=== PATIENT | male | born 1960 | race Caucasian/White ===

== ENCOUNTER 2016-07-08 02:33 | Inpatient (IN) | payer BC ==
[~2016-07-08] VITALS: Ht 182.9 cm; Wt 134.8 kg
--- NOTE | ~2016-07-08 | ECHO ---
Transthoracic Echocardiography Report (TTE) Demographics Patient Name ZOE ELLSWORTH Date of Study 07/08/2016 Patient Number [id number] Visit Number [id number] Date of 1960 Room Number G6306 Gender Male Number Age 56 year(s) Referring Tra Lantigua MD Music Manager Andrzej Calderon RVT Physician Ana Matute MD Physician Interpreting Jamal Monroe Caustic Purification Operator Physician A Supervising Ordering Ana Cruz MD/MLP Physician Nurse Stress Electric Knife Operator Conclusions Contractility Score Summary Normal Left Ventricular contractility was noted. Summary Technically difficult exam. The estimated left ventricular ejection fraction is 55%. Moderate to severe concentric left ventricular hypertrophy. The left atrium is severely dilated by LA volume index measurement. The right atrium is mildly dilated. The patient is known to have a St. Avnce mechanical valve. Velocities and gradients upper limits of normal. Mean gradient 8 mmHg. The aortic valve is mildly sclerotic. There is trivial aortic regurgitation by color Doppler. Mild tricuspid regurgitation by color Doppler. There is mild pulmonary hypertension. The pulmonary pressure (RVSP) is 38 mmHg. Trivial pulmonic valve regurgitation by color Doppler. The ascending aorta appears mildly dilated. The maximum diameter measures 3.3 cm. Procedure Type of Study TTE procedure:2D Echocardiogram. Procedure Date Date: 07/08/2016 Start: 09:27 AM Study Location: Inpatient Portable Technical Quality: Adequate visualization Indications:Dyspnea/SOB. Patient Status: Routine HR: 82 bpm BP: 136/76 mmHg M-Mode/2D Measurements LV Diastolic Dimension: 4.59 cm LV Systolic Dimension: 2.56 cm LV Septum Diastolic: 1.39 cm LV PW Diastolic: 1.94 cm AO Root Dimension: 3.6 cm Cardiac Output: 7.7 l/min AV Cusp Separation: 2.5 cm RV Diastolic Dimension: 3.04 cm LA volume: 216 ml LVOT: 2.7 cm RV Base: 3.28 cm LVOT VTI: 16.4 cm RV Mid: 2.65 cm LV Stroke volume: 93.85 ml Doppler Measurements AV Peak Velocity: 1.13 m/s MV Peak E-Wave: 1.29 m/s AV Peak Gradient: 5.11 mmHg MV Peak A-Wave: 1.68 m/s AV Mean Gradient: 3 mmHg MV E/A Ratio: 0.77 LVOT Peak Velocity: 0.91 m/s MV P1/2t: 89 msec TR Gradient:28.52 mmHg PV Peak Velocity: 1.25 m/s Estimated RAP:10 mmHg PV Peak Gradient: 6.25 mmHg Estimated RVSP: 39 mmHg Estimated PASP: 38.52 mmHg E' Lateral Velocity: 0.09 m/s A' Lateral Velocity: 0.16 m/s Findings Left Ventricle Moderate to severe concentric left ventricular hypertrophy. Right Ventricle Normal right ventricle structure and function. Left Atrium The left atrium is severely dilated by LA volume index measurement. Right Atrium The right atrium is mildly dilated. IVC measures 1.91 cm with inspiratory collapse. Mitral Valve The patient is known to have a St. Vance mechanical valve. Velocities and gradients upper limits of normal. Mean gradient 8 mmHg. Aortic Valve The aortic valve is mildly sclerotic. There is trivial aortic regurgitation by color Doppler. Tricuspid Valve Mild tricuspid regurgitation by color Doppler. There is mild pulmonary hypertension. The pulmonary pressure (RVSP) is 38 mmHg. Pulmonic Valve Trivial pulmonic valve regurgitation by color Doppler. Pericardial Effusion No evidence of pericardial effusion. Miscellaneous The ascending aorta appears mildly dilated. The maximum diameter measures 3.3 cm. Pleural Effusion No evidence of pleural effusion. Contractility Score LV regional wall motion:(0-Non visualized 1-Normal 2-Hypokinesis 3-Akinesis 4-Dyskinesis 5-Aneurysm) Signature dtt: Carri Berryd: 07/08/16 0927 Physician Self Edit
--- NOTE | ~2016-07-08 | CON ---
[facility]GE[facility] 56 Y [address] ROOM: [place] [address] LOCATION: GPCU ADMIT DATE: 07/08/2016 Consultation DISCHARGE DATE: 07/10/2016 FAMILY PHYSICIAN: Derek Luis MD ATTENDING PHYSICIAN: Noe Dailey DATE OF CONSULTATION: 07/08/2016 REFERRING PHYSICIAN: Beltran Maher MD INDICATION: Cough and shortness of breath. HISTORY OF PRESENT ILLNESS: This is a 56-year-old male, transferred from [place] for cough and shortness of breath. He reports an onset of cough 4 months ago without any precipitating factors. In has become progressed to becoming daily and also waking him at night. It is very harsh and dry and it causes him to be lightheaded and dizzy at times. He denies any history of asthma or allergies. He has no history of tobacco use. He denies any PND, orthopnea, or edema. No chest pain. His shortness of breath occurs mainly with cough. He has been given several rounds of antibiotics and prednisone and notes some improvement with the prednisone. He was also given an inhaled corticosteroid inhaler, but developed thrush after the first day or so and therefore stopped it. He did not note any improvement with ProAir either. He also notes excessive daytime sleepiness, snoring, and apneic spells. Overall, he feels a little better this morning after being started on IV steroids. He also notes improvement with DuoNeb. He was initially started on BiPAP and has been weaned down to 4 L nasal cannula. He denies any nasal drainage or congestion. He has no heartburn symptoms. He denies any fevers, chills, nausea, or vomiting. Initial ABG showed pH of 7.37, pCO2 45, PO2 59, and bicarb 26. CT of the chest was reportedly normal. PAST MEDICAL HISTORY: Includes mitral valve replacement, on termite renewal inspector anticoagulation; paroxysmal atrial fibrillation; and hyperlipidemia. ALLERGIES: SEE APR. MEDICATIONS: See MAR. SOCIAL HISTORY: The patient denies any tobacco or alcohol use. He is a rancher. PATIENT'S NAME: [facility] AGE: 56 Y [address] ROOM: [place] [address] LOCATION: GPCU ADMIT DATE: 07/08/2016 Consultation DISCHARGE DATE: 07/10/2016 FAMILY PHYSICIAN: Derek Luis MD ATTENDING PHYSICIAN: Noe Dailey FAMILY HISTORY: His mother had hypertension, his father from old age. He denies any premature coronary artery disease in the family. REVIEW OF SYSTEMS: All review of systems were reviewed and are negative except for what is noted in the HPI. PHYSICAL EXAMINATION: VITAL SIGNS: Blood pressure 136/76, heart rate 79, respirations 16, temperature 98.0, and 4 L per nasal cannula at 92%. GENERAL: This is an obese 56-year-old male who is alert and oriented x3 and appears in no acute distress at the time of exam. HEENT: Head: Normocephalic and atraumatic. Eyes, clear. NECK: Supple. No adenopathy. No carotid bruits or JVD. LUNGS: With diffuse wheezing. No rales. HEART: Regular rate and rhythm without murmur, gallop, or rub. ABDOMEN: Soft, nontender, and nondistended. Bowel sounds x4. EXTREMITIES: No cyanosis or clubbing. Trace edema. DIAGNOSTIC DATA: ABG showed pH of 7.37, pCO2 45, PO2 59, bicarb 26. Lactate was 2.5. Sodium 142, potassium 4.5, BUN 11, and creatinine 1.3. WBC 8.2, hemoglobin 13.3, hematocrit 40.4, and platelets 159. Chest x-ray demonstrated only cardiomegaly. ASSESSMENT: 1. Cough, most likely reactive airway disease and possibly asthma. 2. Reactive airway disease/asthma exacerbation. Started on IV steroids with DuoNeb and albuterol p.r.n. and has already demonstrated some improvement in the last several hours. Recommend continuing with IV steroids and adding an inhaled corticosteroid/LABA. Recommend allergic workup as an outpatient. Also recommend adding Tessalon Perles or cough syrup if needed. We will plan to check PFTs as an outpatient. 3. Acute hypoxic respiratory failure secondary to reactive airway disease/asthma exacerbation. Wean O2 as able. 4. Lower extremity edema. Echocardiogram pending. 5. History of mitral valve replacement. Recommend following up on cultures and stopping the antibiotics if things are negative. 6. Excessive daytime sleepiness. Recommend outpatient sleep study. Thank you for the consult and opportunity to participate in the patient's care. PATIENT'S NAME: ZOE ELLSWORTH [facility] AGE: 56 Y [address] ROOM: [place] [address] [facility] ADMIT DATE: 07/08/2016 Consultation DISCHARGE DATE: 07/10/2016 FAMILY PHYSICIAN: Derek Luis MD ATTENDING PHYSICIAN: Noe Dailey TI HENDRIX APRN FOR SEAN HAGEN DO [facility]/modl /[id number] d: 07/29/162104 t: 08/03/162122, CONSULTATION REPORT
--- NOTE | ~2016-07-08 | HP ---
PATIENT'S NAME: ZOE ELLSWORTH [facility] AGE: 56 Y [address] ROOM: [address] [place] [id number] LOCATION: GPCU ADMIT DATE: 07/08/2016 History & Physical DISCHARGE DATE: FAMILY PHYSICIAN: PHYSICIAN, UNKNOWN ATTENDING PHYSICIAN: LONNY PIERRE DATE OF SERVICE: CHIEF COMPLAINT: Dry cough and dyspnea when he has dry cough, roughly started 4 months ago. HISTORY OF PRESENT ILLNESS: This is a 56-year-old male who says that for the last 4 months, he has been having this dry cough and dyspnea only when he has dry cough. He has seen his primary care physician 4 to 5 times. He was given multiple antibiotics and also inhalers and steroids, and he states that only the steroids helping the most, but eventually the dry cough and the dyspnea when he has dry cough will always come back. The patient was scheduled to see a director of compliance today, but before he could even see Pulmonology, his dry cough and shortness of breath when he has dry cough, had become worse, and he went to the emergency room today at [place] for evaluation. Over there, the patient had a CT pulmonary angiogram performed and based on the report that was sent over here, it was read as no evidence of pulmonary embolism and per verbal report given to me by the transferring physician over there, no evidence of effusion or infiltrate. I do not physically see the written report in the chart; I will request that to be sent over here. The patient was put on BiPAP for the presumed COPD exacerbation; however, upon further questioning, the patient was never a smoker and never had exposure to secondhand smokers either. The patient was also never told that he had a COPD diagnosis either. The patient was feeling better on BiPAP, and the patient was transferred here for further care. Before the transfer, the patient also got 1 dose of DuoNeb nebulization and 1 dose of IV Solu-Medrol 125 mg and also 1 dose of IV ceftriaxone 1 g and IV azithromycin 500 mg x1. The patient also has a history remarkable for status post mechanical aortic valve replacement 20 years ago in [place], on Coumadin long-term and INR was found to be 3.9 from the outside facility, and the patient denies any history of bleeding. REVIEW OF SYSTEMS: As mentioned in the history of present illness. All other systems were reviewed and they were negative except for those mentioned in the history of present illness. PAST MEDICAL HISTORY: PATIENT'S NAME: ZOE ELLSWORTH [facility] AGE: 56 Y [address] ROOM: [address] [place], [place] [address] [facility] ADMIT DATE: 07/08/2016 History & Physical DISCHARGE DATE: FAMILY PHYSICIAN: PHYSICIAN, UNKNOWN ATTENDING PHYSICIAN: LONNY PIERRE According to the patient: 1. Mitral valve problem, details not clear, status post mitral valve replacement 20 years ago in [place] and on long-term anticoagulation with Coumadin. 2. History of paroxysmal atrial fibrillation, on Coumadin and also on antiarrhythmic, flecainide. Flecainide was started about a year and half ago. The patient was never on amiodarone. 3. Hyperlipidemia. 4. Probable obstructive sleep apnea given that the patient does snore at night and also has episodes of apnea during sleep per the patient's . Never had a sleep study done before. ALLERGIES: NO KNOWN DRUG ALLERGIES ACCORDING TO THE PATIENT. HOME MEDICATIONS: 1. Albuterol inhalation every 4 hours p.r.n. for shortness of breath or wheezing. 2. Lipitor 40 mg p.o. daily at bedtime. 3. Codeine 30 mg p.o. every 4 hours p.r.n. for pain. 4. Flecainide 100 mg p.o. b.i.d. 5. Coumadin 4 mg p.o. daily alternating with Coumadin 5 mg p.o. daily for INR goal of 2.5 to 3.5 for mechanical mitral valve. SOCIAL HISTORY: The patient was never a cigarette smoker. Also did not have any secondhand exposure to smoke either. The patient is a social alcohol drinker, but he denies any alcohol abuse. 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 PAST SURGICAL HISTORY: Status post mechanical mitral valve replacement 20 years ago in [place], on long- term Coumadin. FAMILY HISTORY: Mother has hypertension and father from old age. He denies any premature coronary artery disease in the family. PHYSICAL EXAMINATION: VITAL SIGNS: At the time of my dictation, temperature 98, heart rate is at 71, respiration is at 14, blood pressure is at 130/80, and saturation at 92% on 3 L nasal cannula. GENERAL APPEARANCE: Alert and oriented x3. In no acute distress. HEENT: Pupils equally round and reactive to light. Extraocular muscles intact. Anicteric sclerae. Nasal turbinates are normal bilaterally. Moist PATIENT'S NAME: ZOE ELLSWORTH [facility] AGE: 56 Y [address] ROOM: [place] [address] [facility] AD[facility] DATE: 07/08/2016 History & Physical DISCHARGE DATE: FAMILY PHYSICIAN: PHYSICIAN, UNKNOWN ATTENDING PHYSICIAN: LONNY PIERRE oral mucosa. NECK: No JVD. CARDIOVASCULAR: Mechanical aortic valve sound. No murmurs, no rubs. Normal S1, S2. RESPIRATORY: Diffuse wheezing on examination. No rales, no rhonchi, no crackles. ABDOMEN: Obese, soft, nontender, nondistended, normal bowel sounds, no hepatosplenomegaly. Bowel sounds are present. EXTREMITIES: Pitting edema +1 in bilateral lower extremities. The patient said this is chronic for long time. SKIN: No ulcer, no rash, no cyanosis. MUSCULOSKELETAL: No joint pain, no muscle pain. NEUROLOGIC: Grossly nonfocal. LABORATORY DATA: ABG: PH 7.37, pCO2 of 45, pO2 of 59, bicarbonate 26, and saturation 89%, and this was performed on 2 L nasal cannula, not on BiPAP. Lactic acid 2.5. Troponin less than 0.04. ProBNP 214. CPK 184. White blood cells 8.2, hemoglobin 13.3, hematocrit 40.4, MCV 91.2, platelets 159. Glucose 155, BUN 11, creatinine 1.3, sodium 142, potassium 4.5, chloride 110, CO2 of 22, calcium 8.6. Liver function testing: Total protein 6.9, albumin 3.3, AST 22, ALT 23, alkaline phosphatase 78, total bilirubin 0.7. Magnesium 2.1. Anion gap 14.5. GFR 57. INR 3.69, PTT 51, CK-MB 0.8. Procalcitonin less than 0.05. IMAGING STUDIES: EKG on admission here on July 08, 2016, at 4:05 a.m. shows sinus rhythm with a first-degree AV block, HI of 245 milliseconds, QRS 144 milliseconds, QTc 467 milliseconds. Evidence of a complete right bundle-branch block. Q-wave on the inferior leads. T inversion in the inferior leads. No prior EKG for comparison. CT pulmonary angiogram performed at outside facility: Per the report sent over here, no evidence of PE. Per verbal report given to me over the phone, no evidence of effusion or infiltrate. I will have to request the written report to be sent over here. ASSESSMENT AND PLAN: 1. Regarding his dry cough and dyspnea when he has dry cough: I suspect he might have asthma that was never diagnosed, given that he has a wheezing on examination and dry cough and going on for 4 months, and he responds to steroids in the past. I will treat him as an acute asthma exacerbation with IV Solu-Medrol 60 mg b.i.d. given that he got a 1 full dose of 125 mg from an outside facility already. I will cover him with PATIENT'S NAME: ZOE ELLSWORTH [facility] AGE: 56 Y [address] ROOM: [place] [address] [facility] ADMIT DATE: 07/08/2016 History & Physical DISCHARGE DATE: FAMILY PHYSICIAN: PHYSICIAN, UNKNOWN ATTENDING PHYSICIAN: LONNY PIERRE IV, which is a good coverage for community-acquired atypical organism, and I will request the written report of the CT pulmonary angiogram to be sent over here from [place]. I will also give him nebulization with Xopenex and Atrovent plus Xopenex p.r.n. Oxygen nasal cannula to keep the saturation more than 94% and also use incentive spirometry 10 times per hour while awake. I will get a chest x-ray in the morning again. Further plan depends on clinical course. I will also get a Pulmonology consult for further evaluation to determine the cause of his dry cough and also his shortness of breath with dry cough for the last 4 months. I will do a septic workup including blood culture 2 sets, get a UA and also urine culture as well. Further plan depends on clinical course. 2. Regarding his supratherapeutic INR in the setting of using Coumadin for mechanical mitral valve: Hold the Coumadin tonight and dosing per pharmacy to keep the INR goal at 2.5 to 3.5 in the setting of a mechanical mitral valve replacement. Give him Protonix 40 mg p.o. daily given that he is on steroids and also on Coumadin. 3. Regarding his history of paroxysmal atrial fibrillation: EKG shows sinus rhythm currently. Continue telemetry monitoring. Continue the home medication, flecainide and also Coumadin dosing per pharmacy. I will get an echo in the morning given that the patient does have a trace pitting edema in bilateral lower extremities, echo will see the mechanical valve and also looking at any other valvulopathy and ejection fraction and any wall motion abnormality. Cardiology could be consulted if necessary. The patient denies any chest pain. Further plan depends on clinical course. 4. Regarding his probable obstructive sleep apnea: The patient does snore and also does have periods of apnea during sleep at night per the patient's . I will keep him on oxygen nasal cannula. The patient may require a sleep study. I will defer the evaluation to the director of compliance. For now, I will continue oxygen nasal cannula. Currently, the patient does not require a BiPAP, and the patient does not have evidence of CO2 retention given that his bicarbonate is 22; therefore, he is not a CO2 retainer. The patient was also never a smoker, I doubt he has a chronic obstructive pulmonary disease diagnosis. 5. Regarding his hyperlipidemia: I will check the lipid panel and continue the home medication that he is currently taking with statin. I will also check a hemoglobin A1c in the morning as well. 6. Regarding his deep vein thrombosis prophylaxis: His INR is already supratherapeutic, and he is on Coumadin already. 7. Code status: He is a full code. Time spent in care on the day of admission 45 minutes including chart review, interviewing the patient, examining the patient, addressing all the questions and concerns the patient had; I also went over the plan of care in detail with PATIENT'S NAME: ZOE ELLSWORTH [facility] AGE: 56 Y [address] ROOM: [place] [address] [facility] ADMIT DATE: 07/08/2016 History & Physical DISCHARGE DATE: FAMILY PHYSICIAN: PHYSICIAN, UNKNOWN ATTENDING PHYSICIAN: LONNY PIERRE the patient, the patient's , and the nurses. I also went over the plan of care and answered all the questions that the patient and the patient's had at the bedside. Further plan will depend on the patient's clinical course. MD BHAKTI LOPEZ/manjit /[id number] D: [id number] T: [id number] HISTORY & PHYSICAL
--- NOTE | ~2016-07-08 | DS ---
PATIENT'S NAME: ZOE ELLSWORTH [facility] AGE: 56 Y [address] ROOM: [address] [address] LOCATION: GPCU ADMIT DATE: 07/08/2016 Discharge Summary DISCHARGE DATE: 07/10/2016 FAMILY PHYSICIAN: Derek Luis MD ATTENDING PHYSICIAN: Mark Estevez FINAL DIAGNOSES: 1. Reactive airway disease. 2. Bronchitis, resolving. 3. History of mitral valve replacement. 4. Long-term anticoagulation with supratherapeutic INR, currently Coumadin is on hold. 5. Nocturnal hypoxia. 6. High risk for obstructive sleep apnea. CONSULTATIONS: Pulmonology, Isiah Skaggs DO. PROCEDURES: None. REASON FOR ADMISSION: This is a 56-year-old male, who presented with dry cough and dyspnea. The patient had been having chronic dry cough for about four months, and had been seen by his primary care physician with repeat antibiotic treatment. The patient presented with shortness of breath from [facility]. He was transferred for higher level of care. Please see Dr. Dailey's admission H and P for further details. DIAGNOSTIC STUDIES: A transthoracic echocardiogram was done on admission and showed normal left ventricular contractility with ejection fraction of 55%, and [id number] concentric left ventricular hypertrophy was noted with the right atrium mildly dilated. The patient has a [place] mechanical valve. Aortic valve was mildly sclerotic. Mild tricuspid regurgitation was noted. Mild pulmonary hypertension with RVSP of 38 mmHg was noted. Ascending aorta appeared dilated. ABG was done on admission and showed a pH of 7.37, pCO2 of 45, pO2 of 59, bicarbonate of 26.0, lactate of 2.5, CPK of 184, troponin I was less than 0.04, and proBNP of 214. Serial CBCs were done and white count on admission was 8.2. The patient was placed on steroids. White count at the time of discharge was 13.5. The patient had elevated white count, likely secondary to steroid use. Hemoglobin, hematocrit, and platelet levels were within normal range. Serial CMP showed essentially normal electrolytes, kidney function tests, and liver function tests. Hemoglobin A1c was 6.2. Lipid panel was done, which showed a total cholesterol of 175, triglycerides of 146, HDL of 48, and LDL of 98. The PATIENT'S NAME: ELLSWORTH, ZOE [facility] AGE: 56 Y [address] ROOM: [id number] [place], [place] [address] LOCATION: GPCU ADMIT DATE: 07/08/2016 Discharge Summary DISCHARGE DATE: 07/10/2016 FAMILY PHYSICIAN: Derek Luis MD ATTENDING PHYSICIAN: Mark Estevez patient is on Coumadin. His INR was supratherapeutic at 3.69 on admission. Coumadin was held. The next day, INR was 3.47. Coumadin was re-started and INR was supratherapeutic on the day of discharge at 4.09. Coumadin was held on the day of discharge. UA was negative for bacteria. Procalcitonin level was less than 0.05. Bordetella pertussis test was done, and is pending at this point of time. Chest x-ray was done on admission for dyspnea and showed cardiac enlargement and past cardiac surgery. No vascular congestion. Acute parenchymal infiltrate was noted. Urine culture was negative. Blood culture remained negative. The patient had a CT chest, PE protocol done at the referral hospital prior to transfer to [facility]. It was negative for PE. EKG showed sinus rhythm with first-degree AV block and rate of 74 beats per minute, possible right bundle-branch block, and non-specific changes. The patient's CT chest also showed hepatic steatosis with hepatosplenomegaly and positive for cholelithiasis. HOSPITAL COURSE: This is a 56-year-old male, who presented with chronic onset of dry cough and shortness of breath. The patient had been having chronic dry cough and shortness of breath for the past four months. He has been followed up with his primary care physician, and has had repeated course of steroids, which he temporarily gets better with, and antibiotics. The patient presented to [facility] with increased shortness of breath and a dry cough. He was evaluated and a CT chest, PE protocol was done that was negative for pulmonary embolism. It did show hepatic steatosis with hepatosplenomegaly and positive for cholelithiasis. The patient was then given steroids and antibiotics, and placed on BiPAP and transferred to [facility] for higher level of care. After admission to [facility], a 2D echo was done, and findings are as above. Pulmonology, Dr. Bibler was consulted. This patient was thought to have reactive airway disease. He was placed on Levaquin. He was also given breathing treatments aggressively. He received steroids aggressively. The patient's white count was normal on admission. Blood cultures were negative. The patient did not have a fever. His UA was normal. Sepsis workup remained negative. The patient did have elevation in his white count by the time of discharge. This was thought to be likely secondary to steroid use. The patient was able to be weaned off BiPAP. He was not requiring any oxygen during the day. He was ambulating without the help of any oxygen. His dyspnea had improved markedly. His dry cough improved markedly with Tessalon Perles. The patient then continued to do well. The day prior to his discharge, a trend oximetry study was done, and the patient qualified for home O2 at bedtime. The patient will need a sleep study as outpatient with his primary care physician. PATIENT'S NAME: ZOE ELLSWORTH [facility] AGE: 56 Y [address] ROOM: [place] [address] [facility] ADMIT DATE: 07/08/2016 Discharge Summary DISCHARGE DATE: 07/10/2016 FAMILY PHYSICIAN: Derek Luis MD ATTENDING PHYSICIAN: Mark Estevez The patient has a history of mitral valve replacement, and is on long-term anticoagulation. At the time of admission, his INR was supratherapeutic and Coumadin was held. When his INR was within normal range, Coumadin was re- started for a day. However, on the day of discharge, the patient's INR was supratherapeutic at 4.29, and again Coumadin was held on the day of discharge. The patient was also asked to hold Coumadin up until he got a PT/INR with Urgent Care or his primary care physician on 07/11/2016. Primary care physician is to re-start Coumadin based on PT/INR levels. The patient was advised about the same. The patient continued to do well, and was anxious to get home. CONDITION ON DISCHARGE: He was then discharged to home in stable condition with the appropriate followup. DISCHARGE INSTRUCTIONS: The patient was discharged on a cardiac diet with activity as tolerated. Follow up with Dr. Maher, Pulmonology, in 4 to 6 weeks' time. Follow up with PCP, Dr. Derek Luis on 07/11/2016 with the PT/INR. The patient is to follow up with Urgent Care or ER for PT/INR on 07/11/2016 if his primary care physician is not available. The patient verbalized understanding. PCP is to check CBC and BMP at followup. PCP is to manage Coumadin based on PT/INR levels. Goal PT/INR is 2.5 to 3.5. Hold Coumadin on 07/10/2016 and on 07/11/2016. Resume Coumadin on 07/12/2016 if okay with PCP. DISCHARGE MEDICATIONS: 1. Lipitor 40 mg p.o. at bedtime. 2. Flecainide 100 mg p.o. b.i.d. 3. Tessalon Perles 100 mg p.o. t.i.d. p.r.n. cough. 4. Levaquin 750 mg p.o. daily for seven more days. 5. Protonix 40 mg p.o. daily. 6. ProAir HFA inhaler two puffs inhalation every 2 hours as needed p.r.n. shortness of breath or wheezing. 7. Codeine sulfate 30 mg p.o. q.4 hours p.r.n. pain. 8. Coumadin 9 mg p.o. daily per home regimen. Hold on 07/10/2016 and 07/11/2016. He may resume if okay with PCP after PT/INR level on 07/11/2016. PCP is to manage Coumadin. Goal INR is 2.5 to 3.5. 9. Albuterol nebulizer one nebulization treatment q.6 hours. 10. Symbicort 160/4.5 mcg two puffs inhalation b.i.d. with spacer. 11. Prednisone 40 mg p.o. daily for three days; stop on 07/11/2016. 12. Prednisone 30 mg p.o. daily for two days; stop on 07/13/2016. 13. Prednisone 20 mg p.o. daily for two days; stop on 07/15/2016. 14. Prednisone 10 mg p.o. daily for two days; stop on 07/17/2016. 15. Prednisone 5 mg p.o. daily for two days, stop on 07/19/2016. This patient was managed by Hospitalist and Pulmonology teams during this PATIENT'S NAME: ZOE ELLSWORTH [facility] AGE: 56 Y [address] ROOM: [place] [address] LOCATION: GPCU ADMIT DATE: 07/08/2016 Discharge Summary DISCHARGE DATE: 07/10/2016 FAMILY PHYSICIAN: Derek Luis MD ATTENDING PHYSICIAN: Mark Estevez admission. MARK ESTEVEZ MD MT/modl /[id number] CC: Derek Luis MD d: 07/11/16 0448 t: 07/13/16 2154, DISCHARGE SUMMARY
--- NOTE | ~2016-07-08 | PUL ---
PATIENT'S NAME: ZOE ELLSWORTH [facility] AGE: 56 Y [address] ROOM: [place] [address] LOCATION: GPCU ADMIT DATE: 07/08/2016 Pulmonary DISCHARGE DATE: 07/10/2016 FAMILY PHYSICIAN: Derek Luis MD ATTENDING PHYSICIAN: Noe Dailey NAME OF PROCEDURE: Overnight Trend Oximetry DATE OF PROCEDURE: July 09 to July 10, 2016 REASON FOR EXAM: Nocturnal hypoxemia RESULTS: Patient overnight trend oximetry with saturations ranging from 79- 95%. Saturations were below 88% for greater than 5 minutes. Heart rate ranged from 64 to 130 beats per minute. MILAGRO ONEAL MD /[id number] dtt: 07/28/16 0827 , Milagro Oneal dtd: 07/14/16 1502
[2016-07-08] MEDS ORDERED: CODEINE30 MG PO (03:03)
[2016-07-08] MEDS ORDERED: LIPITOR40 MG PO (03:04)
[2016-07-08] MEDS ORDERED: TAMBOCOR100 MG PO (03:04)
[2016-07-08] MEDS ORDERED: COUMADIN 4MG **4 MG PO (03:05)
[2016-07-08] MEDS ORDERED: PROAIR HFA8.5 GM INH (03:06)
[2016-07-08] MEDS ORDERED: COUMADIN ** IA5 MG PO (03:06)
--- NOTE | 2016-07-08 03:10 | NUR ---
Patient admitted at 0225 from [place] for COPD exacerbation. No known allergies. Hx of mechanical heart valve '98, left knee scope x2, right shoulder repair, a.fib [id number] last year, has had chest pain before, COPD and reports chronic nonproductive cough. Reports he thought he had a blood clot when he had his valve done-on coumadin. States he chews a can of tobacco about every 2-3days. Pneumatics on. Not eligible for pneumo vaccine. at bedside.
--- NOTE | 2016-07-08 03:31 | NUR ---
Significant Event: PATIENT ARRIVES FROM [facility] WITH COPD EXACERBATION. PATIENT IS ALERT AND ORIENTED. BIPAP IS RESUMED AT 40% FIO2 12/6. SPOUSE IN ROOM WITH PATIENT. PATIENT TAKES COUMADIN FOR MECHANICAL VALVE. REPORTS HE HAD AN EPISODE OF A.FIB WHICH LASTED 4 MONTHS WHICH WAS NOT RECENT. 18G TO RIGHT WRIST. Follow up:
[2016-07-08 04:13] LABS: LACTATE 2.5 mEq/L (0.50-1.60); PCO2 45 mmHg (35-45); PO2 59 mmHg (80-90)
[2016-07-08 04:25] LABS: BASOPHIL % 0.1 %; EOSINOPHIL % 0.5 %; HEMATOCRIT 40.4 % (37.0-53.0); HEMOGLOBIN 13.3 g/dL (12.0-17.0); IMMATURE GRANULOCYTE % 0.5 %; LYMPHOCYTE % 12.1 %; MCHC 32.9 gm/dL (32.0-36.5); MCV 91.2 fl (83.0-98.0); MONOCYTE # 0.1 K/uL (0.0-1.0); MPV 10.3 fl (9.4-12.4); NEUTROPHIL % 85.8 %; NRBC % 0 /100WBC (0-0.00); PLATELET COUNT 159 K/uL (150-450); RBC 4.43 M/uL (4.00-6.00); RDW-CV 13.5 % (11.9-14.6); WBC 8.2 K/uL (4.0-11.0)
[2016-07-08 04:34] LABS: INR - (THERAPEUTIC) 3.69 (0.92-1.07); PROTIME 39.3 SECONDS (9.8-11.4); PTT 51 SECONDS (25-32)
[2016-07-08 04:49] LABS: ALBUMIN 3.3 gm/dL (3.5-5.0); ALK PHOS 78 IU/L (33-138); ALT 23 IU/L (12-78); ANION GAP 14.5 (10.0-19.0); AST 22 IU/L (10-40); BLOOD UREA NITROGEN 11 mg/dL (6-24); CALCIUM 8.6 mg/dL (8.5-10.5); CHLORIDE 110 mMol/L (96-110); CO2 22 mMol/L (22-32); CPK 184 IU/L (35-332); CREATININE 1.3 mg/dL (0.6-1.3); ESTIMATED GFR (MDRD EQUATION) 57; MAGNESIUM 2.1 mg/dL (1.8-2.6); POTASSIUM 4.5 mMol/L (3.7-5.1); SODIUM 142 mMol/L (135-145); TOTAL BILIRUBIN 0.7 mg/dL (0.0-1.5); TOTAL PROTEIN 6.9 g/dL (6.0-8.4)
[2016-07-08 10:40] LABS: BILIRUBIN URINE NEGATIVE (NEGATIVE); BLOOD URINE 10 /UL (NEGATIVE); COLOR URINE YELLOW (YELLOW); GLUCOSE URINE 100 mg/dL (NEGATIVE); KETONE URINE NEGATIVE (NEGATIVE); LEUKOCYTES URINE NEGATIVE /UL (NEGATIVE); NITRITE URINE NEGATIVE (NEGATIVE); PROTEIN URINE NEGATIVE (NEGATIVE); TURBIDITY URINE CLEAR (CLEAR); UROBILINOGEN URINE NORMAL (NORMAL)
[2016-07-08 10:45] LABS: BACTERIA URINE NEGATIVE (NEGATIVE); EPITHELIAL URINE NEGATIVE #/HPF (NEGATIVE); RBC URINE RARE #/HPF (NEGATIVE); WBC URINE RARE #/HPF (NEGATIVE)
--- NOTE | 2016-07-08 15:14 | NUR ---
Introduced self and role of care management to patient and a daughter. Patient lives near [place] with his . Patient is not on O2 at home. Patient plans home with when ready for discharge. Does not anticipate discharge needs at this time. Will follow.
--- NOTE | 2016-07-08 16:20 | NUR ---
Significant Event: echo done today. UA sent. 3.5liters. Pt up self to bathroom ok. Cough attacks at times, RT gave tx twice which helped. Tessalon perles given. Coumadin given. Solumedrol to q8h. Pt has many family here with him today. No c/o pain. Follow up:
--- NOTE | 2016-07-09 04:51 | NUR ---
Significant Event: A/O x3. Afebrile. Denies pain. VSS on 4L. SBP 130-160. HR 80-90s. LS sl coarse/clear/dim. non productive cough. Up ad nieves. IV rt wrist patent. Cooperative with cares. Follow up: Continue to monitor per plan of care.
[2016-07-09 07:07] LABS: BASOPHIL % 0.1 %; HEMATOCRIT 39.9 % (37.0-53.0); HEMOGLOBIN 13.4 g/dL (12.0-17.0); IMMATURE GRANULOCYTE # 0.1 K/uL (0.0-0.3); LYMPHOCYTE % 6.8 %; MCH 30.6 pg (27.0-34.0); MCHC 33.6 gm/dL (32.0-36.5); MCV 91.1 fl (83.0-98.0); MONOCYTE # 0.4 K/uL (0.0-1.0); MONOCYTE % 2.9 %; MPV 10.2 fl (9.4-12.4); NEUTROPHIL # (ANC) 12.4 K/uL (1.4-9.0); NEUTROPHIL % 89.2 %; NRBC % 0 /100WBC (0-0.00); PLATELET COUNT 165 K/uL (150-450); RBC 4.38 M/uL (4.00-6.00); RDW-CV 13.5 % (11.9-14.6); WBC 13.9 K/uL (4.0-11.0)
[2016-07-09 07:11] LABS: INR - (THERAPEUTIC) 3.47 (0.92-1.07); PROTIME 36.9 SECONDS (9.8-11.4)
[2016-07-09 07:21] LABS: ANION GAP 15.2 (10.0-19.0); CHLORIDE 109 mMol/L (96-110); CO2 23 mMol/L (22-32); CREATININE 1.1 mg/dL (0.6-1.3); ESTIMATED GFR (MDRD EQUATION) > 60; POTASSIUM 4.2 mMol/L (3.7-5.1); SODIUM 143 mMol/L (135-145)
[2016-07-09 07:22] LABS: BLOOD UREA NITROGEN 17 mg/dL (6-24)
--- NOTE | 2016-07-09 14:18 | NUR ---
Significant Event: PT A&O x3. VSS, weaned to RA. Occasional non-productive cough. PT up ad nieves in room and hernandez. IV patent to R)wrist. IV antx and solumedrol. PT denies pain. Voiding without difficulties. BM this shift. Follow up:
[2016-07-10 03:33] LABS: BASOPHIL % 0.1 %; HEMATOCRIT 37.9 % (37.0-53.0); HEMOGLOBIN 12.6 g/dL (12.0-17.0); IMMATURE GRANULOCYTE # 0.2 K/uL (0.0-0.3); IMMATURE GRANULOCYTE % 1.4 %; LYMPHOCYTE # 0.9 K/uL (0.8-4.0); LYMPHOCYTE % 6.6 %; MCH 30.4 pg (27.0-34.0); MCHC 33.2 gm/dL (32.0-36.5); MCV 91.3 fl (83.0-98.0); MONOCYTE # 0.4 K/uL (0.0-1.0); MONOCYTE % 3.1 %; NEUTROPHIL % 88.8 %; NRBC % 0 /100WBC (0-0.00); PLATELET COUNT 163 K/uL (150-450); RBC 4.15 M/uL (4.00-6.00); RDW-CV 13.7 % (11.9-14.6); WBC 13.5 K/uL (4.0-11.0)
[2016-07-10 03:42] LABS: INR - (THERAPEUTIC) 4.09 (0.92-1.07); PROTIME 43.6 SECONDS (9.8-11.4)
[2016-07-10 03:50] LABS: ALBUMIN 3.2 gm/dL (3.5-5.0); ALK PHOS 63 IU/L (33-138); ALT 21 IU/L (12-78); ANION GAP 13.5 (10.0-19.0); AST 19 IU/L (10-40); BLOOD UREA NITROGEN 18 mg/dL (6-24); CHLORIDE 109 mMol/L (96-110); CO2 25 mMol/L (22-32); CREATININE 1.1 mg/dL (0.6-1.3); ESTIMATED GFR (MDRD EQUATION) > 60; POTASSIUM 4.5 mMol/L (3.7-5.1); SODIUM 143 mMol/L (135-145); TOTAL PROTEIN 6.4 g/dL (6.0-8.4)
[2016-07-10 03:53] LABS: TOTAL BILIRUBIN 0.5 mg/dL (0.0-1.5)
--- NOTE | 2016-07-10 04:31 | NUR ---
Significant Event: A/O x3. Afebrile. Denies pain. VSS on RA. Trendox study during night, sats 88-91% RA. intermittent cough. LS sl coarse/mostly clear. Up ad nieves. Ambulated in hernandez. Cooperative with cares. Follow up: Discharge today.
[2016-07-10] MEDS ORDERED: TESSALON PERLE100 MG PO (11:30)
[2016-07-10] MEDS ORDERED: LEVAQUIN 750 M750 MG PO (11:32)
[2016-07-10] MEDS ORDERED: PROTONIX40 MG PO (11:32)
[2016-07-10] MEDS ORDERED: SYMBICORT 16010.2 GM INH (11:40)
[2016-07-10] MEDS ORDERED: ALBUTEROL2.5 MG/31 INH (11:42)
[2016-07-10] MEDS ORDERED: DELTASONE20 MG PO (11:44)
[2016-07-10] MEDS ORDERED: DELTASONE10 MG PO ×3 (11:46→11:48)
--- NOTE | 2016-07-10 14:26 | NUR ---
Significant Event: ALERT & ORIENTED. VSS, AFEBRILE, SATS LOW 90'S ROOM AIR. FAILED OVERNIGHT TREND OX, RT ARRANGED FOR HOME O2 AT BEDTIME. UP AD RYAN, SOME SOB ON EXERTION. DISCHARGE INSTRUCTIONS DISCUSSED WITH PT AND S/O, VERBALIZED UNDERSTANDING. IV REMOVED AND HELP PRESSURE, GUAZE AND COBAN APPLIED. REINFORECED TO HOLD COUMADIN R/T INR 4.09. BELONGINGS WITH PT, ESCORTED TO VEHICLE BY [employer]LE [employer] PUNCHER, S/O TO TRANSPORT TO HOME. Follow up: SEE URGENT CARE OR ER FOR LAB DRAW TOMORROW -. HOLD COUMADIN UNTIL TOLD OTHERWISE BY PRIMARY MD. SEE PRIMARY MD Wednesday-.
== END 2016-07-10 12:46 | disposition disaster alternative care site (69) | DRG 202 ==
LOC: GPCU 02:33
PROVIDERS: Family Medicine; ADMIT Internal Medicine
DX: J45.901 Unspecified asthma with (acute) exacerbation (principal); J96.01 Acute respiratory failure with hypoxia; J40 Bronchitis, not specified as acute or chronic; I48.0 Paroxysmal atrial fibrillation; E78.5 Hyperlipidemia, unspecified; G47.33 Obstructive sleep apnea (adult) (pediatric); I27.2 Other secondary pulmonary hypertension; K76.0 Fatty (change of) liver, not elsewhere classified; K80.20 Calculus of gallbladder without cholecystitis without obstruction; D72.829 Elevated white blood cell count, unspecified; T38.0X5A Adverse effect of glucocorticoids and synthetic analogues, initial encounter; Z95.2 Presence of prosthetic heart valve; Z79.01 Long term (current) use of anticoagulants
CPT/HCPCS: J1956; J2930; J7050; J7512; J7612

== ENCOUNTER → 2016-08-23 | Outpatient (CLI) | payer BC ==
[~2016-08-23] MED LIST: ALBUTEROL2.5 MG/31 INH; CODEINE30 MG PO; COUMADIN ** IA5 MG PO; COUMADIN 4MG **4 MG PO; DELTASONE10 MG PO; DELTASONE20 MG PO; LEVAQUIN 750 M750 MG PO; LIPITOR40 MG PO; PROAIR HFA8.5 GM INH; PROTONIX40 MG PO; SYMBICORT 16010.2 GM INH; TAMBOCOR100 MG PO; TESSALON PERLE100 MG PO
--- NOTE | ~2016-08-23 | PUL ---
PATIENT'S NAME: ZOE ELLSWORTH [facility] AGE: 56 Y [address] ROOM: [place] [address] LOCATION: [facility] ADMIT DATE: 08/23/2016 Pulmonary DISCHARGE DATE: FAMILY PHYSICIAN: Derek Luis MD ATTENDING PHYSICIAN: FADUMO CABRERA NAME OF PROCEDURE: Sleep study PROCEDURE DATE: 08/23/2016 TECH: NAUN Gary TEST #: [facility] – [place], [place]# [id number] TECHNICAL PARAMETERS: The patient was studied using International 10/20 measuring system. While the patient was studied, there was continuous monitoring of EEG (8 leads), EOG (2 leads), EKG (3 leads), submental EMG (3 leads), tibial (4 leads), respiratory inductive plethysmography (RIP) for thoracic and abdominal effort, oral and nasal airflow with a thermocouple and pressure transducer, and oximetry. The oil bay technician also performed visual and auditory observations noting things like body position, patient's status, breath sounds, artifact, snoring level and patient comments. Continuous sound was monitored using a 2-way speaker system and video monitoring was performed using an infrared camera. Review of the entire study was performed epoch by epoch utilizing a single epoch and multiple epoch capability sleep system. MEDICAL HISTORY: The patient is a 56-year-old overweight gentleman with daytime sleepiness and snoring. SLEEP STAGE SUMMARY: The patient was studied for 428 minutes of which he slept 369 minutes. He fell asleep in 2.5 minutes and slept for 86% of the night. Sleep architecture revealed a decline in slow wave sleep. RESPIRATORY SUMMARY: Oxygen saturations ranged from 72-92%. Prior to initiating CPAP there were 19 apneas and 52 hypopneas for an apnea/hypopnea index severely elevated at 35 events per hour. CPAP was initiated and titrated to 15 cm with good control the respiratory events. EKG SUMMARY: Average heart rate during sleep 64 beats per minute. LIMB MOVEMENT SUMMARY: No clinically relevant periodic limb movements were noted. SUMMARY: Obstructive sleep apnea responsive to CPAP at 15 cm. PATIENT'S NAME: ZOE ELLSWORTH [facility] AGE: 56 Y [address] ROOM: [place], [place] [address] LOCATION: [facility] ADMIT DATE: 08/23/2016 Pulmonary DISCHARGE DATE: FAMILY PHYSICIAN: Derek Luis MD ATTENDING PHYSICIAN: FADUMO CABRERA PLAN: Suggest CPAP at 15 cm. Patient will receive results from the ordering provider. MILAGRO ONEAL MD [facility]/ /[id number] dtt: 09/11/16 1301 , Milagro Oneal. dtd: 08/27/16 1145
== END | disposition disaster alternative care site (69) ==
LOC: GSLP 20:12
DX: G47.19 Other hypersomnia (principal); E66.01 Morbid (severe) obesity due to excess calories; G47.34 Idiopathic sleep related nonobstructive alveolar hypoventilation; G47.36 Sleep related hypoventilation in conditions classified elsewhere; G47.33 Obstructive sleep apnea (adult) (pediatric)

== ENCOUNTER → 2016-08-26 | Outpatient (CLI) | payer BC ==
--- NOTE | ~2016-08-26 | PUL ---
PATIENT'S NAME: ZOE ELLSWORTH [facility] AGE: 56 Y [address] ROOM: [place] [address] LOCATION: [facility] ADMIT DATE: 08/26/2016 Pulmonary DISCHARGE DATE: FAMILY PHYSICIAN: Derek Luis MD ATTENDING PHYSICIAN: IRINA COX NAME OF PROCEDURE: Pulmonary Function Test DATE OF PROCEDURE: August 26, 2016 TECH: Alana, CLINICAL REVIEW NURSE REASON FOR EXAM: Cough RESULTS: 1. FVC was 3.26 liters which is 63% of predicted and low, FEV1 was 1.86 liters which is 47% of predicted and low, and FEV1/FVC was 57% and low. The flow volume curve revealed significant airflow limitation. After bronchodilator administration FVC increased to 3.71 liters which is a 14% increase and FEV1 increased to 2.14 liters which is a 15% increase. FEV1/FVC was 58%. 2. DLCO was 21.8 with an adjusted DLCO of 22, which is 68% of predicted and low. 3. Total lung capacity was 6.64 liters which is 93% of predicted and normal, and residual volume was 3.38 liters which is 137% of predicted and high. PHYSICIAN INTERPRETATION: The patient has severe airflow limitation with a significant bronchodilator response. His diffusion capacity is mildly low. There is evidence of air trapping on the lung volumes. MD GENESIS MICHEL/curly /[id number] dtt: 08/31/16 0914 KENNY RADU F dtd: 08/30/16 2213
== END | disposition disaster alternative care site (69) ==
LOC: GRTH 06:35
DX: J45.909 Unspecified asthma, uncomplicated (principal); R05 Cough